=== PATIENT | male | born 1960 | race Caucasian/White ===

== ENCOUNTER 2018-05-10 14:44 | Inpatient (IN) | payer BC ==
[2018-05-10] MEDS ORDERED: NS 500 ML IV ONE (15:02)
--- NOTE | 2018-05-10 15:24 | EDPHY ---
H & P Time Seen by Provider: 05/10/18 15:02 HPI/ROS: HPI Chest pain, shortness of breath. 57-year-old male by private vehicle. This patient was just seen at a urgent care for a work related physical examination. He told the urgent care physician that he was having some intermittent chest pain over the last 2-3 weeks and was sent to the emergency department for evaluation. He describes to me intermittent episodes of left-sided anterior lower chest pain described as a dull ache that comes on for about 30 sec to a minute. He states that sometimes he has radiation up into the back of his neck. He reports that he also has had associated shortness of breath and notices that the pain episodes come on more when he is exerting himself such as going up stairs at work and accompanied by more shortness of breath than usual. Risk factors include diabetes, hyperlipidemia and age. He is a nonsmoker. The patient currently is asymptomatic. He denies any shortness of breath or chest pain at this time. ROS: Constitutional: No fever, no chills. No weakness. Eyes: No discharge. No changes in vision. ENT: No sore throat. No nasal congestion or rhinorrhea. Respiratory: No cough. As above. Cardiac: As above, no palpitations. Gastrointestinal: No abdominal pain, no vomiting, no diarrhea. Genitourinary: No hematuria. No dysuria or increased frequency with urination. Musculoskeletal: No back pain. No neck pain. No myalgias or arthralgias. Skin: No rashes. Neurological: No headache. No focal weakness or altered sensation. Past medical history: Hyperlipidemia, insulin-dependent diabetes, hernia repair , pneumonia, tonsillectomy. Social history: Nonsmoker. No alcohol. Currently here by himself. Physical Exam: General Appearance: Alert, no distress. This patient is responding to questions appropriately and in full sentences. This patient appears well- hydrated and well-nourished. Eyes: Pupils equal and round no pallor or injection. No lid edema, erythema or injection. Respiratory: There are no retractions, lungs are clear to auscultation with good air movement bilaterally. Cardiovascular: Regular rate and rhythm. No murmur. Gastrointestinal: Abdomen is soft and nontender, no masses, bowel sounds normal. No focal tenderness at McBurney's point. No Bee sign. Neurological: Motor sensory function is grossly intact. Cranial nerves are normal. Gait is normal. Skin: Warm and dry, no rashes. Musculoskeletal: Neck is supple and nontender. Extremities are symmetrical. All joints range without pain or impingement. Psychiatric: No agitation. No depression. Database: EKG: EKG time is 3:07 p.m.; EKG shows a narrow complex normal sinus rhythm with a ventricular rate of 81. Borderline left axis deviation noted. The MA, QRS, QT intervals are within normal limits. There are no ST-T wave changes indicative of ischemic or injury pattern. No evidence of right heart strain. Interpreted by me. Imaging: Chest x-ray AP portable; the cardiac mediastinal silhouette is unremarkable. No evidence of infiltrate or pneumothorax. No acute cardiopulmonary disease process noted. Interpreted by me. Procedures: Emergency department course: Triage vital signs reviewed. The patient is mildly hypertensive. Vital signs are otherwise normal. The patient was given 324 mg of chewed aspirin. IV placed. He was placed on a monitor car operator. EKG obtained and reviewed by myself. The patient's heart score is calculated at 4 based on age, history and risk factors. 4:00 p.m., patient re-evaluated, resting comfortably at this time. Results of his emergency department workup discussed with him. Plan for admission discussed with him. He endorses. 4:10 p.m., spoke with on-call hospitalist Dr. Carlos Feng. Case discussed in detail. He accepts this patient for admission to telemetry observation. The patient's remaining emergency department course under my care has been uneventful. The patient was admitted in stable condition. Differential Diagnosis: The differential diagnosis on this patient includes but is not limited to angina , anginal equivalent, NM, PE, CHF. This represents a partial list of diagnoses considered. These considerations are based on history, physical exam, past history, reassessment and diagnostic testing. Smoking Status: Never smoked Constitutional: Initial Vital Signs Temperature (C) 36.6 C 05/10/18 14:49 Heart Rate 87 05/10/18 14:49 Respiratory Rate 16 05/10/18 14:49 Blood Pressure 139/93 H 05/10/18 14:49 O2 Sat (%) 97 05/10/18 14:49 O2 Delivery Mode Room Air Allergies/Adverse Reactions: No Known Allergies Allergy (Unverified 05/10/18 14:48) Home Medications: Medication Instructions Recorded Aspirin 05/10/18 Crestor 05/10/18 Metformin 1000 mg 05/10/18 Prozac 10 MG (*) 05/10/18 Vitamin B12 05/10/18 Medical Decision Making - Diagnostics Imaging Results: Imaging Impressions Chest X-Ray 05/10/18 15:02 Impression: Normal. - Data Points Laboratory Results: Laboratory Results 05/10/18 15:35 05/10/18 15:35 05/10/18 05/10/18 05/10/18 15:38 15:35 15:35 WBC RBC Hgb Hct MCV MCH MCHC RDW Plt Count MPV Neut % (Auto) Lymph % (Auto) Harmon % (Auto) Eos % (Auto) Baso % (Auto) Nucleat RBC Rel Count Absolute Neuts (auto) Absolute Lymphs (auto) Absolute Monos (auto) Absolute Eos (auto) Absolute Basos (auto) Absolute Nucleated RBC Immature Gran % Immature Gran # Platelet Estimate PT 12.6 SEC SEC (12.0-15.0) INR 0.92 (0.83-1.16) APTT 26.1 SEC SEC (23.0-38.0) D-Dimer 0.33 ug/mLFEU ug/mLFEU (0.00-0.50) Sodium 137 mEq/L mEq/L (135-145) Potassium 4.2 mEq/L mEq/L (3.3-5.0) Chloride 104 mEq/L mEq/L (97-110) Carbon Dioxide 25 mEq/l mEq/l (22-31) Anion Gap 8 mEq/L mEq/L (8-16) BUN 21 mg/dL mg/dL (7-23) Creatinine 0.6 mg/dL L mg/dL (0.7-1.3) Estimated GFR > 60 Glucose 131 mg/dL H mg/dL (70-100) Calcium 9.3 mg/dL mg/dL (8.5-10.4) POC Troponin I 0.03 ng/mL ng/mL (0.00-0.08) NT-Pro-B Natriuret Pep 29 pg/mL pg/mL (0-125) 05/10/18 15:35 WBC 13.40 10^3/uL H 10^3/uL (3.80-9.50) RBC 4.75 10^6/uL 10^6/uL (4.40-6.38) Hgb 14.2 g/dL g/dL (13.7-17.5) Hct 40.7 % % (40.0-51.0) MCV 85.7 fL fL (81.5-99.8) MCH 29.9 pg pg (27.9-34.1) MCHC 34.9 g/dL g/dL (32.4-36.7) RDW 13.3 % % (11.5-15.2) Plt Count 278 10^3/uL 10^3/uL (150-400) MPV 8.9 fL fL (8.7-11.7) Neut % (Auto) Pending Lymph % (Auto) Pending Harmon % (Auto) Pending Eos % (Auto) Pending Baso % (Auto) Pending Nucleat RBC Rel Count Pending Absolute Neuts (auto) Pending Absolute Lymphs (auto) Pending Absolute Monos (auto) Pending Absolute Eos (auto) Pending Absolute Basos (auto) Pending Absolute Nucleated RBC Pending Immature Gran % Pending Immature Gran # Pending Platelet Estimate Pending PT INR APTT D-Dimer Sodium Potassium Chloride Carbon Dioxide Anion Gap BUN Creatinine Estimated GFR Glucose Calcium POC Troponin I NT-Pro-B Natriuret Pep Medications Given: Discontinued Medications Aspirin (Aspirin) 324 mg PO EDNOW ONE Stop: 05/10/18 15:27 Last Admin: 05/10/18 15:38 Dose: 324 mg Sodium Chloride (Ns) 500 mls @ 1,000 mls/hr IV EDNOW ONE PRN Reason: Protocol Stop: 05/10/18 15:31 Last Admin: 05/10/18 15:16 Dose: 500 mls Point of Care Test Results: Chemistry 05/10/18 15:38 POC Troponin I 0.03 ng/mL ng/mL (0.00-0.08) Departure - Departure Disposition: [facility] Inpatient Acute Clinical Impression: Chest pain Referrals: PARUL GHOSH [Other] - As per Instructions
[2018-05-10] MEDS ORDERED: ASPIRIN 81 MG CHEWABLE TAB PO ONE (15:26)
[2018-05-10 15:47] LABS: PLATELET COUNT 278 10^3/uL (150-400)
[2018-05-10 15:51] LABS: INR 0.92 (0.83-1.16); PROTIME(PATIENT) 12.6 SEC (12.0-15.0)
[2018-05-10] MEDS ORDERED: D50W 25 GM/50 ML VIAL IVP PRN (17:12)
--- NOTE | 2018-05-10 17:38 | GHP ---
DATE OF ADMISSION: 05/10/2018 CHIEF COMPLAINT: Chest pain. HISTORY OF PRESENT ILLNESS: This is a 57-year-old man with type 2 diabetes, who presents with chest pain. He had a routine screening physical exam today for a new job. The physician who performed the physical was worried and recommended that he present to the emergency department. He tells me that for about the past 2 weeks, he has had a left-sided dull aching chest pain that is reproducible with exertion. He has been fairly active, walks daily. Now, when he begins to walk, he gets this chest pain. It is relieved when he rests. He also goes to the gym and lifts weights. He does not note the chest pain while lifting weights; however, has noted some worsening lightheadedness associated with lifting weights. He is not currently having any chest pain. He has no palpitations, no new swelling. His chest pain is associated with some shortness of breath. PAST MEDICAL/SURGICAL HISTORY: 1. Diabetes mellitus type 2. Last A1c 5.7. 2. Hernia repair. 3. Tonsillectomy. MEDICATIONS: Please see medication reconciliation. ALLERGIES: No known drug allergies. FAMILY HISTORY: His mother had a CABG. SOCIAL HISTORY: He does not drink or smoke. 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 REVIEW OF SYSTEMS: A 10-point review of systems is conducted and is negative except per HPI. PHYSICAL EXAM: VITAL SIGNS: Blood pressure 146/92, heart rate 78, respiration rate 18, satting 97% on room air, temperature is 36.6. GENERAL: This is a pleasant man who is resting comfortably in no acute distress. HEENT: Shows him to be normocephalic, atraumatic. CARDIOVASCULAR: Shows a regular rate and rhythm. There are no murmurs, rubs, or gallops. PULMONARY: Shows distant breath sounds; however, he is in no respiratory distress, and he is clear bilaterally. ABDOMEN: Mildly obese. He is soft, nontender, nondistended. SKIN: Shows no rash. : No [place]. EXTREMITIES: Shows no lower extremity edema. NEUROLOGIC: Shows him to be alert and oriented x3. He is moving all extremities. PSYCHIATRIC: Shows a normal mood and affect. LABORATORY DATA: Basic metabolic panel is normal. Creatinine is 0.6, initial troponin is 0.03, BNP is 29. His D-dimer is 0.33, INR is 0.92. White count is 13.4 with a relatively unremarkable distribution. DATA: 1. I discussed this with Casey Mckay. Cardiology will consult. 2. I personally reviewed and interpreted his EKG. This shows sinus rhythm. He has borderline left axis deviation. 3. Chest x-ray, which I personally viewed and interpreted, shows a normal- sized heart, no acute infiltrates. IMPRESSION AND PLAN: 1. Chest pain/shortness of breath: History is concerning for new angina in a man with diabetes. I have discussed with Casey Mckay, Cardiology will consult. We will make him n.p.o. after midnight in case a catheterization is warranted. I have ordered an echocardiogram for his shortness of breath. We will trend his troponins and monitor him on telemetry in the PCU. He has received an aspirin. His HEART Score is 4. 2. Diabetes mellitus: Will hold metformin for now, continue his glargine and place him on low-dose sliding scale and follow his blood glucoses. /[id number]/MODL MTDD
[2018-05-10] MEDS: INSULIN LISPRO 100 UNIT/ML SC SCH (18:13)
[2018-05-10] MEDS ORDERED: HYDROCODONE/APAP 5/325 TAB PO PRN (19:44)
[2018-05-10] MEDS: OXYMETAZOLINE 30 ML NASAL SPRAY EACHNARE SCH (20:57)
[2018-05-10] MEDS ORDERED: INSULIN GLARGINE 100 UNITS/ML UNIT SC SCH (21:00)
--- NOTE | 2018-05-10 23:05 | CPEKG ---
Test Reason : OPEN Blood Pressure : / mmHG Vent. Rate : 081 BPM Atrial Rate : 081 BPM P-R Int : 143 ms QRS Dur : 094 ms QT Int : 383 ms P-R-T Axes : 058 -22 056 degrees QTc Int : 445 ms Sinus rhythm Borderline left axis deviation Confirmed by Félix Martino ([id number]) on 05/10/2018 11:05:02 PM Referred By: Confirmed By:Félix Martino
[2018-05-11 04:17] LABS: PLATELET COUNT 267 10^3/uL (150-400)
[2018-05-11] MEDS: OXYMETAZOLINE 30 ML NASAL SPRAY EACHNARE SCH (08:00)
[2018-05-11] MEDS ORDERED: MIDAZOLAM 2 MG/2 ML VIAL ONE ×4 (08:21→13:47)
[2018-05-11] MEDS ORDERED: LIDOCAINE 1% 300 MG/30 ML SDV ONE (08:21)
[2018-05-11] MEDS ORDERED: fentaNYL 100 MCG/2 ML INJ ONE ×3 (08:21→17:32)
[2018-05-11] MEDS ORDERED: IOPAMIDOL (ISOVUE-370) 150 ML BTL IV ONE (08:22)
[2018-05-11] MEDS ORDERED: DIAZEPAM 5 MG TAB PO ONE (08:50)
[2018-05-11] MEDS ORDERED: ACETAMINOPHEN 325 MG TAB PO PRN ×2 (08:50→17:37)
[2018-05-11] MEDS ORDERED: diphenhydrAMINE 25 MG CAP PO ONE ×2 (08:50→11:09)
[2018-05-11] MEDS ORDERED: TEMAZEPAM 15 MG CAP PO PRN (08:50)
[2018-05-11] MEDS ORDERED: FAMOTIDINE 20 MG TAB PO ONE (08:50)
[2018-05-11] MEDS ORDERED: NITROGLYCERIN 0.4 MG BTL SL PRN (08:50)
[2018-05-11] MEDS ORDERED: ASPIRIN EC 325 MG TAB PO ONE ×2 (08:50→11:09)
[2018-05-11] MEDS ORDERED: ASPIRIN 325 MG TAB PO SCH (09:00)
[2018-05-11] MEDS ORDERED: NS 1,000 ML IV SCH ×2 (09:00→17:45)
[2018-05-11] MEDS: ROSUVASTATIN CALCIUM 10 MG TAB PO SCH (09:05)
[2018-05-11] MEDS: ASPIRIN EC 81 MG TAB PO SCH (09:05)
[2018-05-11] MEDS: INSULIN LISPRO 100 UNIT/ML SC SCH ×2 (09:14→13:16)
--- NOTE | 2018-05-11 10:21 | GCON ---
CARDIOLOGY CONSULTATION REFERRING PHYSICIAN: Carlos Feng MD SUPERVISING MUSIC THERAPY TEACHER: Dr. Baudilio Bowman. INDICATION FOR CARDIOLOGY CONSULTATION: Exertional chest pressure. HISTORY OF PRESENT ILLNESS: The patient is a 57-year-old male with significant past history that inc ludes adult-onset diabetes, previous smoker (quit in the late 20s), and hyperlipidemia. He informs ld mary kate, yesterday he was seen at an urgent care for a physical for a new job at his work. He did tell the physician that was providing the examination that over the last few weeks, he has been noticing epis odes of shortness of breath, occasionally associated with midsternal chest pressure with exertion. Anh hartmann reports that he has been noticing this on a daily basis, usually after climbing 1 or 2 flights of s tairs at work, especially on hot days. He has also noticed this at home when he has been mowing his yard. He denies of any associated symptoms of nausea or diaphoresis. Usually after he gets the shor tness of breath and pressure, he stops for between 2 and 5 minutes, and the symptoms resolved. He do es state that he was planning to see his primary care about this, but his work physical came up first . Due to his symptoms, it was recommended that he come to the emergency department for further evalu ation. Upon arrival to the ER, he did undergo chest x-ray, which showed no acute cardiopulmonary pro cess. An electrocardiogram was done, which noted sinus rhythm, left axis deviation, potentially poor R-wave progression in anterior leads, but no acute ST or T-wave abnormalities. He did have a tropon in level done initially, which was noted to be at 0.03. He was asymptomatic. He was admitted to PCU for overnight observation and cycle troponins. Through the night, it was noted that his troponin at 11 o'clock did elevate a little bit at 0.061, and a repeated troponin level done this morning at 4 a .m. showed mildly increasing troponin of 0.064. He reports that he has had no further episodes of ch est pressure or pain since arriving to the hospital. He denies of any history of orthopnea, PND, tameka ma, palpitations, lightheadedness, near-syncope, or syncopal events. Besides having chest pressure a nd pain, he has been in his normal state of health. Denying symptoms suggestive of TIA or CVA. Jesica ent with significant cardiac risk factors that include diabetes, previous smoker, hyperlipidemia, and family history of heart disease, reporting Mother had an NJ at age 67, requiring quadruple bypass. PAST MEDICAL HISTORY: Patient states past medical histories include diabetes mellitus type 2. Lowell nt reports last hemoglobin A1c was 5.7. Hyperlipidemia, peripheral neuropathy, and osteoarthritis. PAST SURGICAL HISTORY: Includes hernia repair in the 1980s and a T and A in 1964. FAMILY HISTORY: Patient states that mother had NJ in 2000 at age 67. She did undergo quadruple bypa ss surgery but, unfortunately, did have an infection postoperatively and of sepsis. SOCIAL HISTORY: He works here in [employer]. He is . He has 1 child who is 10 years old who is alive and well. He reports occasional alcohol use. Reports previous smoker, quitting at age 26. D enies of any illicit drug use. ALLERGIES: He has no known drug allergies. MEDICATIONS: At home include aspirin 81 mg p.o. daily. Afrin nasal spray 1 spray each nares b.i.d. Ibuprofen 800 mg p.o. t.i.d. p.r.n. [place] 5/325 at 0.5 mg p.o. t.i.d. p.r.n. Lantus 30 units subcu h.s. Crestor 10 mg p.o. daily. Vitamin B 1 tablet p.o. daily. Metformin 1000 mg p.o. b.i.d. REVIEW OF SYSTEMS: A 10-point review of systems done on this patient, all negative except as mention ed above. PHYSICAL EXAMINATION: GENERAL APPEARANCE: Medium built, mildly obese, male. He is alert and orientated to person, place, time, and situation. Appears to be under no acute distress. VITAL SIGNS: Current vital signs are blood pressure of 149/99, heart rate of 86, sinus rhythm on the monito r. Noted no malignant arrhythmias on monitoring throughout the night. Respirations are 15, saturati ng 91% on room air. Temperature at 4 a.m. was 36.8 degrees Celsius. HEENT: Head is normocephalic. Lips and tongue are pink and moist with no signs of cyanosis. Conjunctivae pink. NECK: Trachea is midline, +2 carotid pulses bilateral. No auscultated bruits, no jugular vein distention. RESPIRATO RY: Lungs are clear to auscultation. No rhonchi, rales or wheezes. No accessory muscle use. No in tercostal muscle retraction noted. ABDOMEN: Soft, nontender. Bowel sounds x4 quadrants. No organo megaly, no palpable masses. SKIN: [place], warm, dry. No cyanosis, no clubbing, no peripheral edema. VASCULAR: +2 carotids bilateral, +2 radials bilateral, +1 dorsal pedal and posterior tibial pulses bilateral. LABORATORY STUDIES: Laboratory studies drawn today noted WBC of 12.87, hemoglobin of 13.9, hematocri t of 40.3, platelet count of 267. Triglycerides of fasting lipid panel 272, total cholesterol of 158 , HDL of 10, LDL of 94. On admission, last evening, he was noted to have an INR of 0.92. D-dimer of 0.33. Sodium of 137, potassium 4.2, chloride 104, CO2 of 25. BUN 21, creatinine 0.6, glucose 131, calcium 9.3, proBNP of 29. Initial troponin was 0.03, repeated troponin at 2300 last evening was burton vated to 0.061 and this morning at 4 a.m. was 0.064. STUDIES: Electrocardiogram and chest x-ray as mentioned above. ASSESSMENT AND PLAN: 1. Chest pressure with shortness of breath with exertion. Patient with significant cardiac risk fac tors, reporting over the last 2 weeks of ongoing exertional chest pressure with shortness of breath, potentially mostly on a daily basis. Does subside within 3-5 minutes of rest ([place] Cardiovascul[employer] r Society class 3). The patient with noted mildly elevated troponin. At this time, due to his multi ple risk factors, his symptoms of exertion, and indeterminate troponin levels, it is felt best that t he patient be further evaluated for cardiac ischemia by undergoing cardiac catheterization for furthe r evaluation. Risks and benefits of this procedure were explained to the patient. He verbalizes und erstanding and is wanting to proceed. He has been n.p.o. since midnight. We will plan for him to go later this morning with Dr. Bowman to perform procedure. Currently he is chest pain free. We will ho ld off on starting him on beta-blockers at this time, due to him going for procedure soon. We will g dex him a full dose of aspirin before going to the catheterization laboratory. We will start him on IV fluid for some mild hydration, since he has been n.p.o. and history of diabetes. 2. Hyperlipidemia: Patient with noted history of hyperlipidemia, currently on statin therapy. Pend ing on results of his cardiac catheterization, would recommend that Crestor be increased with goal of getting LDL of less than 70. 3. Diabetes: His home dose of metformin has been held by the hospitalist services. He has been con tinued on his Lantus. His blood sugars have been running . Post catheterization, we will want him to hold his metformin for 48 hours after procedure. We will defer diabetic management to spitalist services. Thank you for this consultation. More recommendations will come up postprocedure. We will be glad t o follow along with you. /[id number]/MODL
--- NOTE | 2018-05-11 10:41 | PDCARPN ---
Cardiology Progress Note Chief Complaint: Exertional chest pressure, NORTH. Assessment/Plan: Assessment: 1. Exertional Chest pressure 2. NORTH 3. Hyperlipidemia 4. DM II Plan: -[facility] this AM -Risks and benefits discussed in detail 05/11/18 10:40 Subjective: Jay is a pleasant 57 year old with hx of DM and Hyperlipidemia who presents with a 2 week history of exertional chest pressure and NORTH with climbing stairs. No known history of CAD. LDL of 94 on Crestor 10 mg daily. Plan for [facility] today. Risks and Benefits discussed in detail. Pt is agreeable to pursue. Objective: Vital Signs (8 Hrs) Temp Pulse Resp BP Pulse Ox 05/11/18 08:00 86 15 149/99 H 91 L 05/11/18 04:00 36.8 C 71 16 137/82 H 96 Intake/Output (24 Hrs) 05/10/18 05/11/18 05/12/18 05:59 05:59 05:59 Intake Total 700 Balance 700 Intake: Oral (ml) 700 Other: Weight 91.172 kg Number of Voids Toilet 1 Result Diagrams: 05/11/18 03:53 05/10/18 15:35 Cardiac Labs: Cardiac Lab Results (72 Hrs) 05/11/18 05/10/18 03:53 23:21 Troponin I 0.064 H 0.061 H - Physical Exam Neurologic: AAOx3, CN II-XII grossly intact Psychiatric: cooperative, interactive, following commands ICD10 Worksheet Patient Problems: Problems Problem Status Onset Chest pain Acute
[2018-05-11] MEDS ORDERED: FAMOTIDINE 20 MG TAB ONE (11:08)
[2018-05-11] MEDS ORDERED: DIAZEPAM 5 MG TAB ONE (11:09)
--- NOTE | 2018-05-11 11:25 | PDPROPOC ---
Sedation Plan of Care Sedation Plan of Care: vital signs stable, mental status noted, patient educated of risks, benefits, alternatives, patient can tolerate sedation ASA Classification: ASA 2 Planned drugs: fentanyl, midazolam Mallampati Score: Class 2 Mallampati Reference Image: Patient passed 3-3-2 rule?: Yes
[2018-05-11] MEDS ORDERED: ONDANSETRON 4 MG/2 ML VIAL IVP PRN ×2 (12:26→17:37)
[2018-05-11] MEDS ORDERED: ATROPINE SULFATE 1 MG/10 ML SYR IVP PRN (12:26)
[2018-05-11] MEDS ORDERED: PROTAMINE SULFATE 50 MG/5 ML VIAL IVP ONE (12:43)
[2018-05-11] MEDS ORDERED: niCARdipine/NACL/200 ML BAG IV ONE (12:44)
[2018-05-11] MEDS ORDERED: CALCIUM CHLORIDE 1 GM/10 ML INJ ONE ×3 (12:44→12:45)
[2018-05-11] MEDS ORDERED: MILRINONE/DEXTROSE/100 ML BAG IV ONE (12:44)
[2018-05-11] MEDS ORDERED: AMIODARONE HCL 150 MG/3 ML VIAL ONE ×2 (12:44→12:46)
[2018-05-11] MEDS ORDERED: NA BICARBONATE 50 MEQ/50 ML VIAL ONE (12:44)
[2018-05-11] MEDS ORDERED: DOPamine/DEXTROSE 400 MG/250 ML BAG IV ONE (12:44)
[2018-05-11] MEDS ORDERED: HEPARIN 10,000 UNIT/10 ML MDV (1,000 UNIT/ML) ONE ×2 (12:44→12:45)
[2018-05-11] MEDS ORDERED: ADENOSINE 6 MG/2 ML VIAL ONE (12:45)
[2018-05-11] MEDS ORDERED: ALBUMIN 5% 250 ML BOTTLE IV ONE ×2 (12:45→16:03)
[2018-05-11] MEDS ORDERED: NITROGLYCERIN/D5W 50 MG/250 ML BOTTLE IV ONE (12:45)
[2018-05-11] MEDS ORDERED: ceFAZolin 1 GM VIAL ONE (12:45)
[2018-05-11] MEDS ORDERED: LIDOCAINE 2% 100 MG/5 ML SYR ONE ×2 (12:45→13:51)
[2018-05-11] MEDS ORDERED: CITRATE DEXTROSE SOLN 500 ML BAG ONE (12:45)
[2018-05-11] MEDS ORDERED: methylPREDNISolone SOD SUCC 1 GM/8 ML VIAL ONE (12:46)
[2018-05-11] MEDS ORDERED: NOREPINEPHRINE BITARTRATE 16 MG in NS 250 ML IV ONE (12:46)
[2018-05-11] MEDS ORDERED: ceFAZolin 2 GM/DEXTROSE 100 ML IV ONE (12:46)
[2018-05-11] MEDS ORDERED: CITRATE DEXTROSE SOLN 500 ML BAG MISC ONE (12:46)
[2018-05-11] MEDS ORDERED: MANNITOL 25% 12.5 GM/50 ML VIAL IVP ONE (12:46)
[2018-05-11] MEDS ORDERED: AMINOCAPROIC ACID 5 GM/20 ML VIAL IV ONE (12:46)
[2018-05-11] MEDS ORDERED: SODIUM BICARBONATE 20 MEQ, LIDOCAINE 1% 10 ML in NORMOSOL-R 1,000 ML MISC ONE (12:46)
[2018-05-11] MEDS ORDERED: MAGNESIUM SULFATE 1 GM/2 ML VIAL ONE (12:46)
[2018-05-11] MEDS ORDERED: MUPIROCIN 2% 22 GM OINT NS ONE (12:46)
[2018-05-11] MEDS ORDERED: INSULIN REGULAR HUMAN 100 UNIT in NS 100 ML IV ONE (12:46)
[2018-05-11] MEDS ORDERED: PHENYLEPHRINE HCL 50 MG in NS 250 ML IV ONE (12:46)
[2018-05-11] MEDS ORDERED: VERAPAMIL 5 MG, NITROGLYCERIN 2.5 MG, HEPARIN 500 UNIT, SODIUM BICARBONATE 0.2 MEQ in L... MISC ONE (12:46)
[2018-05-11] MEDS ORDERED: niCARdipine/NACL 200 ML IV ONE (12:48)
[2018-05-11] MEDS ORDERED: VERAPAMIL 5 MG/2 ML VIAL ONE (12:49)
[2018-05-11] MEDS ORDERED: MINERAL OIL 10 ML VIAL ONE (12:49)
[2018-05-11] MEDS ORDERED: PAPAVERINE HCL 60 MG/2 ML SDV ONE (12:49)
--- NOTE | 2018-05-11 13:12 | CPIP ---
DATE OF PROCEDURE: 05/11/2018 PROCEDURES PERFORMED: Left heart catheterization, left coronary angiography, right coronary angiogra phy, left ventriculogram, and common femoral artery angiography. INDICATION: The patient is a pleasant 57-year-old gentleman with a known history of type 2 diabetes and hyperlipidemia, who presented to [facility] with complaints of chest pain. He st ates that over the last several weeks with a change in job, he has been having to climb stairs and gutierrez bsequently has noted shortness of breath and dyspnea on exertion, as well as exertional chest pain. He states that the symptoms have progressed to the point where he was getting chest pain with walking on flat surfaces and resolved with rest. He has no previous history of coronary disease. DESCRIPTION OF PROCEDURE: After informed consent was obtained for left heart catheterization, as wel l as possible percutaneous intervention, the patient was brought to the cardiac catheterization lab w here he was prepped and draped in sterile fashion. Using 1% lidocaine, the right groin was anestheti zed. Using modified Seldinger technique with micropuncture technique, a 6-Rwandan catheter was placed into the right common femoral artery without complications. A JL-4 was originally used to attempt t o cannulate the left main unsuccessfully. This was exchanged over a guidewire for a JL 3.5 wire. A JL 3.5 catheter was able to cannulate the left main. Images were obtained in multiple projections of the left coronary anatomy. A JL 3.5 catheter was exchanged over a guidewire for a JR4 catheter. JR 4 catheter was used to take images of the right coronary artery in multiple projections. JR4 cathete r was exchanged over a guidewire for an angled pigtail catheter. Angled pigtail catheter was used to cross the aortic valve. Left ventriculogram was performed. LVEDP was assessed. Aortic valve gradi ent was assessed. Angled pigtail catheter was removed over a guidewire without complications. Right common femoral artery angiography demonstrated appropriate placement of the 6-Rwandan sheath below th e inguinal ligament and just proximal to the bifurcation. This was amenable to Angio-Seal. FINDINGS: 1. Left main is normal size and caliber. There is a 20-30 percent ostial left main stenosis. 2. Left anterior descending artery demonstrates 2 areas of disease in the proximal mid segment. Pro ximal stenosis of 70%, mid stenosis of 70-80% at the level of the large diagonal branch. 3. Circumflex vessel demonstrates mild luminal irregularities throughout the vessel. There is 40-50 % ostial stenosis of the large 1st obtuse marginal branch. 4. The right coronary artery is a large caliber dominant vessel that bifurcates into PDA and PLV bra nch. There are multiple segments of disease in the proximal vessel of approximately 95% or more. HEMODYNAMICS: Left ventriculogram demonstrates LVEF of 65%-70%. LVEDP of 12 mmHg. Aortic valve gra dient none. CONCLUSION: 1. Severe 2-vessel disease with severe disease within the left anterior descending and right coronar y artery. 2. 30% ostial left main. 3. Mild luminal irregularities in the circumflex with 40-50% ostial stenosis of the first obtuse mar ginal branch. 4. Normal left ventricular function and hemodynamics. In the setting of diabetes and hyperlipidemia with 2-vessel disease, I have recommended a CT surgery consultation and coronary artery bypass graft surgery. In the setting of progressive symptoms, now o ccurring with walking on flat surface with mildly elevated troponin, I have recommended urgent surger y to be performed later today. /[id number]/MODL
--- NOTE | 2018-05-11 13:27 | PDANEPAE ---
ANE History of Present Illness severe 2v CAD s/f urgent CABG ANE Past Medical History - Pulmonary History Hx Oxygen in Use at Home: No Hx Sleep Apnea: Yes - Endocrine History Hx Diabetes: Yes Endocrine History Comment: adult onset ANE Review of Systems Review of Systems: - Exercise capacity Exercise capacity: >=4 METS ANE Patient History - Allergies Allergies/Adverse Reactions: No Known Allergies Allergy (Unverified 05/10/18 14:48) - Home Medications Home medications: home medication list seen and reviewed Home Medications: Aspirin EC [Aspirin EC 81 mg (*)] 81 mg PO DAILY 05/10/18 [Last Taken 05/10/18] Hydrocodone/APAP 5/325 [[place] 5/325 (*)] 0.5 each PO TID PRN 05/10/18 [Last Taken 05/10/18] Ibuprofen [Motrin (*)] 800 mg PO TID PRN 05/10/18 [Last Taken 05/10/18] Insulin Glargine [Lantus 100 UNITS/ML (*)] 30 unit SC HS 05/10/18 [Last Taken ] Metformin HCl [Metformin 1000 mg] 1,000 mg PO BIDMEAL 05/10/18 [Last Taken 05/10 07:00] Oxymetazoline HCl [Afrin Nasal [place] (OTC)] 1 spray EACHNARE BID 05/10/18 [Last Taken 05/10/18] Rosuvastatin Calcium [Crestor 10mg (RX)] 10 mg PO DAILY 05/10/18 [Last Taken ] Vitamin B Complex [Vitamin B Complex (OTC)] 1 each PO DAILY 05/10/18 [Last Taken 05/10/18] - NPO status NPO Status: no food or drink >8 hours - Anes Hx Anes Hx: no prior problems - Smoking Hx Smoking Status: Never smoked Marijuana use: No - Alcohol Use Alcohol Use: Rarely - Family Anes Hx Family Anes Hx: none ANE Labs/Vital Signs - Labs Result Diagrams: 05/11/18 03:53 05/10/18 15:35 - Vital Signs Blood Pressure: 149/99 Heart Rate: 86 Respiratory Rate: 15 O2 Sat (%): 91 Height: 172.72 cm Weight: 92.2 kg ANE Physical Exam - Airway Neck exam: FROM Mallampati Score: Class 2 Mouth exam: normal dental/mouth exam - Pulmonary Pulmonary: no respiratory distress - Cardiovascular Cardiovascular: regular rate and rhythym - ASA Status ASA Status: III, E ANE Anesthesia Plan Anesthesia Plan: general endotracheal anesthesia Lines/Monitors: arterial line, central line
--- NOTE | 2018-05-11 13:27 | GCON ---
DATE OF CONSULTATION: 05/10/2018 IMPRESSION: 1. Zxu-[id number]-[id number] myocardial infarction with severe 3-vessel and left main disease with preserved left ventricular function. 2. Insulin-dependent diabetes mellitus. 3. Mild obesity. 4. Status post hernia repair, tonsillectomy, and sinus surgery. RECOMMENDATIONS: This patient has a stuttering infarct with high-grade proximal right and LAD diseas e, as well as ostial left main. He should undergo urgent coronary artery revascularization. We will utilize 2 internal thoracic arteries, as well as a single vein graft endoscopically harvested. His overall risk is 0.5% for stroke, bleeding, infection, heart attack, or . Patient is aware. His was advised as well. She signed the consent since the patient had sedation. He had been advis ed that he may be a surgical candidate preoperatively, and was agreeable with that. MEDICAL HISTORY: As stated. SURGERIES: As stated. REVIEW OF SYSTEMS: At present time, he is lying supine, moderately sedated. Please see admitting hi story and physical for review of systems. 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 , accompanied by his . He does not smoke. He dri nks an occasional alcoholic beverage. PHYSICAL EXAMINATION: GENERAL: This is a moderately overweight, middle-aged gentleman lying supine, in no apparent distress. VITAL SIGNS: Blood pressure is 149/99, pulse 86, respirations 15, O2 satu ration 91% on room air. HEENT: Normocephalic. RAQUEL. EOMI. NECK: Without bruit, adenopathy, or thyromegaly. HEART: Rate is regular without murmur, S3 or S4. LUNGS: Clear. ABDOMEN: Protuberan t, nontender. Bowel sounds are active. Femorals were cannulated. There were pulses symmetrically, as well as pedal pulses without edema. /[id number]/MODL
[2018-05-11] MEDS ORDERED: fentaNYL 250 MCG/5 ML INJ ONE (13:47)
[2018-05-11] MEDS ORDERED: PROPOFOL/EMULSION 500 MG/50 ML BOTTLE IV ONE ×2 (13:47→15:09)
[2018-05-11] MEDS ORDERED: REMIFENTANIL HCL 1 MG VIAL ONE ×2 (13:47→15:09)
[2018-05-11] MEDS ORDERED: PHENYLEPHRINE HCL 100 MCG/ML SYR ONE ×2 (13:48→15:13)
[2018-05-11] MEDS ORDERED: ROCURONIUM 100 MG/10 ML VIAL ONE (13:48)
[2018-05-11] MEDS ORDERED: ePHEDrine SULFATE 25 MG/5 ML SYR ONE (13:48)
[2018-05-11] MEDS ORDERED: LIDOCAINE HCL 160 MG/4 ML LTA KIT TP ONE (13:54)
--- NOTE | 2018-05-11 14:22 | HOSPPROG ---
Hospitalist Progress Note Assessment/Plan: Patient taken to cath and found to have multivessel disease and taken to OR for revascularization. Medicine will sign off as patient now will be cared for by CT surgery, please reconsult if need arises. Objective: Vital Signs Temp Pulse Resp BP Pulse Ox 36.8 C 86 15 149/99 H 91 L 05/11/18 04:00 05/11/18 13:27 05/11/18 13:27 05/11/18 13:27 05/11/18 13:27 Laboratory Results 05/11/18 03:53 05/10/18 05/11/18 05/12/18 05:59 05:59 05:59 Intake Total 700 Balance 700 PT 12.6 SEC (12.0-15.0) 05/10/18 15:35 INR 0.92 (0.83-1.16) 05/10/18 15:35 ICD10 Worksheet Patient Problems: Problems Problem Status Onset Chest pain Acute
[2018-05-11] MEDS ORDERED: LABETALOL HCL 5 MG/ML 20 ML MDV ONE (14:33)
--- NOTE | 2018-05-11 14:49 | ASMTCASEMG ---
Living Arrangements What is your living Answers: With Spouse arrangement? Who do you live with? Type Of Residence What kind of residence do Answers: House you live in? Discharge Plan Comments Coordination Status Comments Notes: Pt is a 57 y/o man admitted for chest pain, dyspnea with exertion. 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 Needs are TBD at this time. CM to follow. Plan: TBD Date Signed: 05/11/2018 02:49 PM Electronically Signed By:VINAY Barth
--- NOTE | 2018-05-11 14:55 | ECHO ---
[email or web address] [address] [address] Main: [phone] Fax: Transthoracic Echocardiogram Name: ARNAV DAVIS MR#: [id number] Study Date: 05/11/2018 Study Time: 09:36 AM Date of : 1960 Age: 57 year(s) Height: 172.7 cm (68 in.) Weight: 91.17 kg (201 lb.) BSA: 2.05 m2 Gender: Male Examination: Echo Indication: sobnb Image Quality: Technically Difficult Contrast: Requested by: Carlos Feng BP: 149 mmHg/99 mmHg Heart Rate: Rhythm: Indication: sobnb Procedure Staff Green Material Value Added Assessor: Maty Lares TENZIN Reading Physician: Vinay Gordillo MD Requesting Provider: Conclusions: Normal size left ventricle. No LV hypertrophy. Normal global systolic LV function. The ejection fraction is estimated to be 55-60 %. No regional wall motion abnormality. Normal diastolic LV function. Normal size right ventricle. Normal RV function. The left atrium is normal in size. The right atrium is normal in size. The mitral valve is normal in appearance and function. Mild mitral valve regurgitation is present. The aortic valve is tri-leaflet. Aortic sclerosis is present. There is no significant aortic valve regurgitation. No aortic valve stenosis is present. The tricuspid valve is normal in appearance and function. Trivial to mild tricuspid valve regurgitation. The pulmonic valve is normal in appearance and function. There is no pulmonic regurgitation seen. The aorta is normal. Normal size aortic root measuring 2.8 cm. Normal size ascending aorta measuring 2.5 cm. The IVC is normal sized. No pericardial effusion. No pleural effusion. The patient is slated for urgent bypass surgery. No evidence of significant or concomittant valvular heart disease. Valvular abnormalities as noted above. Patient: ARNAV DAVIS Study Date: 05/11/2018 Page 1 of 3 09:36 AM Measurements: Chambers Valvular Assessment AV/MV Valvular Assessment TV/PV Normal Normal Normal Name Value Range Name Value Range Name Value Range Ao Jessica (2D): 2.8 cm (1.4 cm-2.6 AV Vmax: 1.58 m/s (1 m/s-1.7 PV Vmax: 0.92 m/s (0.6 m/s-0.9 cm) m/s) m/s) IVSd (2D): 1.0 cm (0.6 cm-1.1 AV maxP mmHg ( - ) PV PGmax: 3 mmHg ( - ) cm) AV meanP mmHg ( - ) LVDd (2D): 4.3 cm (4.2 cm-5.9 TUYET (VTI): 2.0 cm ( - ) cm) MV E Vmax: 0.70 m/s ( - ) LVDs (2D): 2.8 cm (2.1 cm-4 MV A Vmax: 0.62 m/s ( - ) cm) MV E/A: 1.13 ( - ) LVPWd (2D): 1.0 cm (0.6 cm-1 cm) MV PHT: 0.058 s ( - ) LVOTd 1.9 cm 1.9 cm mm MVA (PHT): 3.8 s ( - ) LVEF (BP): 61 % (>=55 %) EF Range: 55-60 % RVDd(2D): 3.0 cm (1.9 cm-3.8 cmmm) Continued Measurements: Chambers Valvular Assessment AV/MV Name Value Name Value LADs: 3.3 cm MV DecTime: 225 m/s LADs Lon.7 cm MV E' Septal: 0.06 m/s LA Area: 13.4 cm2 MV E/E' Septal: 11.00 LA Volume: 27 ml MV E/E' Lateral: 5.80 LA Volume Index: 13.2 ml/m2 RA Area: 11.0 cm2 Additional Vessels Name Value Ao Ascendin.5 cm Inferior Vena Cava: 1.0 cm Findings: Left Ventricle: Normal size left ventricle. No LV hypertrophy. Normal global systolic LV function. The ejection fraction is estimated to be 55-60 %. No regional wall motion abnormality. Normal diastolic LV function. Right Ventricle: Normal size right ventricle. Normal RV function. Left Atrium: The left atrium is normal in size. Right Atrium: The right atrium is normal in size. Mitral Valve: The mitral valve is normal in appearance and function. Mild mitral valve regurgitation is present. No mitral stenosis is present. Aortic Valve: The aortic valve is tri-leaflet. Aortic sclerosis is present. There is no significant aortic valve regurgitation. No aortic valve stenosis is present. Tricuspid Valve: The tricuspid valve is normal in appearance and function. Trivial to mild tricuspid valve regurgitation. Pulmonic Valve: The pulmonic valve is normal in appearance and function. There is no pulmonic regurgitation seen. Aorta: The aorta is normal. Normal size aortic root measuring 2.8 cm. Normal size ascending aorta measuring 2.5 cm. Patient: ARNAV DAVIS Study Date: 05/11/2018 Page 2 of 3 09:36 AM IVC: The IVC is normal sized. Pericardium: No pericardial effusion. No pleural effusion. (No Signature Object) Patient: ARNAV DAVIS Study Date: 05/11/2018 Page 3 of 3 09:36 AM [id number]
[2018-05-11] MEDS ORDERED: SUGAMMADEX SODIUM 200 MG/2 ML VIAL IVP ONE (17:23)
[2018-05-11] MEDS ORDERED: ONDANSETRON 4 MG/2 ML VIAL ONE (17:24)
[2018-05-11] MEDS ORDERED: DEXAMETHASONE 4 MG/ML VIAL ONE (17:25)
[2018-05-11] MEDS ORDERED: ACETAMINOPHEN 650 MG SUPP PR PRN (17:37)
[2018-05-11] MEDS ORDERED: METOCLOPRAMIDE 10 MG/2 ML VIAL IVP PRN (17:37)
[2018-05-11] MEDS ORDERED: ONDANSETRON DISINTEGRATING 4 MG TAB PO PRN (17:37)
[2018-05-11] MEDS ORDERED: MAGNESIUM HYDROXIDE 30 ML UDCUP PO PRN (17:37)
[2018-05-11] MEDS ORDERED: CEPACOL LOZENGE PO PRN (17:37)
[2018-05-11] MEDS ORDERED: POTASSIUM Cl (KCl) 50 ML IV PRN (17:37)
[2018-05-11] MEDS ORDERED: LACTULOSE 20 GM/30 ML UDCUP PO PRN (17:37)
[2018-05-11] MEDS ORDERED: BISACODYL 10 MG SUPP PR PRN (17:37)
[2018-05-11] MEDS ORDERED: MEPERIDINE 25 MG/0.5 ML AMP IVP PRN (17:37)
[2018-05-11] MEDS ORDERED: ALBUMIN 5% 250 ML IV PRN (17:37)
[2018-05-11] MEDS ORDERED: POLYETHYLENE GLYCOL 3350 17 GM PKT PO PRN (17:37)
[2018-05-11] MEDS ORDERED: PANTOPRAZOLE SODIUM 40 MG VIAL IVP ONE (17:37)
[2018-05-11] MEDS ORDERED: SODIUM CL NASAL 45 ML BTL EACHNARE PRN (17:37)
[2018-05-11] MEDS ORDERED: PROPOFOL 200 MG/20 ML VIAL ONE (17:49)
[2018-05-11] MEDS ORDERED: INSULIN REGULAR HUMAN 100 UNIT in NS 100 ML IV SCH (18:00)
[2018-05-11] MEDS ORDERED: niCARdipine/NACL 200 ML IV SCH (18:00)
--- NOTE | 2018-05-11 18:03 | PDMN ---
Medical Necessity Medical necessity: MCG: S390 CABG 4 days [facility] INPT only- emergent CABG X4
[2018-05-11] MEDS: fentaNYL 100 MCG/2 ML INJ IVP PRN (19:23)
[2018-05-11] MEDS ORDERED: DEXMEDETOMIDINE HCL 400 MCG in NS 100 ML IV SCH (20:00)
[2018-05-11] MEDS: SENNOSIDES/DOCUSATE SODIUM TAB PO SCH (20:27)
[2018-05-11] MEDS: MUPIROCIN 2% 22 GM OINT NS SCH (20:35)
[2018-05-11] MEDS: ceFAZolin 2 GM/DEXTROSE 100 ML IV SCH (21:35)
[2018-05-12] MEDS: fentaNYL 100 MCG/2 ML INJ IVP PRN ×4 (00:46→08:04)
[2018-05-12] MEDS: HYDROCODONE/APAP 5/325 TAB PO PRN ×2 (03:47→05:02)
[2018-05-12 04:44] LABS: PLATELET COUNT 210 10^3/uL (150-400)
--- NOTE | 2018-05-12 04:45 | GOP ---
DATE OF OPERATION: 05/12/2018 SURGEON: Randall Hurst DO PROFESSIONAL HOUSING CONSULTANT: Ananth Naidu PA-C. ANESTHESIOLOGIST: Malachi Holloway MD. PREOPERATIVE DIAGNOSIS: Non-Q-wave infarction with post infarction angina and severe 3-vessel diseas e. POSTOPERATIVE DIAGNOSIS: Non-Q-wave infarction with post infarction angina and severe 3-vessel disea se. PROCEDURE PERFORMED: 1. Urgent coronary bypass grafting x4 with left internal mammary artery to the left anterior descend ing, right internal mammary artery to the main right, saphenous vein graft to the lateral circumflex and saphenous vein graft to the posterior descending artery. 2. Ligate left atrial appendage. 3. Endoscopic vein harvest. FINDINGS: Patient was noted to have persistent chest pain on admission with elevated troponins. Jessica gnostic cath revealed severe 3-vessel disease with preserved LV function. He was consented for surge ry by his . DESCRIPTION OF PROCEDURE: He was taken to the operating room intubated, and monitoring lines were pl aced. He was prepped and draped in the sterile classical manner. Sternotomy was performed. Both ma mmaries were harvested. They were excellent 2.8 to 3 mm vessels with brisk flow. He was heparinized , cannulated and bypass was begun. The vein had been harvested endoscopically from the left leg by PEPE Moody, who first assisted throughout the procedure. All distals and proximals were performe d with a cross-clamp on. The cross-clamp was removed with suction on the ascending aortic vent. Spo ntaneous cardiac activity was noted to resume. Left atrial appendage was doubly ligated with Endoloo ps. He was weaned from bypass and the heparin was reversed with protamine. The cannula was removed and oversewn. Two ventricular pacing wires, 2 pleural and 1 mediastinal drain were placed. The thym ic fat and pericardium were closed. Chest was closed in standard fashion. The patient was returned to ICU in stable condition. /[id number]/MODL
[2018-05-12] MEDS: HEPARIN 5,000 UNIT/0.5 ML INJ SC SCH ×3 (05:39→21:48)
[2018-05-12] MEDS: ceFAZolin 2 GM/DEXTROSE 100 ML IV SCH ×3 (05:52→21:48)
--- NOTE | 2018-05-12 07:27 | SOAPPROG ---
SOAP Progress Note Assessment/Plan: POD #1: Urgent CABGx4 (PRADHAN-LAD, CHELSEA-RCA, SVG-PDA, SVG-lat circ), EVH L thigh, LLAA Unstable angina/NSTEMI/severe 3-vessel CAD s/p urgent CABGx4 - BB/ASA/statin for secondary prevention - CTs to bulb suction, AL/FC out - Transfer to PCU later today once off insulin gtt protocol Acute blood loss anemia - Stable without the need for transfusion DM - Will transition insulin gtt to ISS today - Re-introduction of Metformin/Lantus as per hospitalist - A1c pending DVT prophylaxis - SCDs/heparin SQ Subjective: Has some pain. Feels hot. Denies SOB. Objective: Vital Signs Temp Pulse Resp BP Pulse Ox 36.7 C 101 H 30 H 125/85 H 92 05/12/18 07:00 05/12/18 07:00 05/12/18 07:00 05/12/18 07:00 05/12/18 07:00 Laboratory Results 05/12/18 04:00 05/12/18 04:00 05/11/18 05/12/18 05/13/18 05:59 05:59 05:59 Intake Total 756 Output Total 1420 Balance -664 PT 12.6 SEC (12.0-15.0) 05/10/18 15:35 INR 0.92 (0.83-1.16) 05/10/18 15:35 Physical Exam - Physical Exam General Appearance: WD/WN, alert, no apparent distress EENT: No scleral icterus (R), No scleral icterus (L) Neck: normal inspection Respiratory: No respiratory distress Cardiac/Chest: regular rate, rhythm Abdomen: non-tender, soft, No distended Skin: normal color, warm/dry Extremities: No pedal edema Neuro/Psych: no motor/sensory deficits, alert, normal mood/affect, oriented x 3 ICD10 Worksheet Patient Problems: Problems Problem Status Onset Acute blood loss anemia Acute S/P CABG x 4 Acute CAD (coronary artery disease) Acute Chest pain Acute
[2018-05-12] MEDS: OXYCODONE/APAP 5/325 TAB PO PRN ×4 (08:27→20:41)
[2018-05-12] MEDS: ASPIRIN EC 81 MG TAB PO SCH (09:55)
[2018-05-12] MEDS: METOPROLOL TARTRATE 25 MG TAB PO SCH ×2 (09:55→20:40)
[2018-05-12] MEDS: PANTOPRAZOLE SODIUM 40 MG TAB PO SCH (09:55)
[2018-05-12] MEDS: SENNOSIDES/DOCUSATE SODIUM TAB PO SCH ×2 (09:55→20:41)
[2018-05-12] MEDS: MUPIROCIN 2% 22 GM OINT NS SCH ×2 (09:55→20:42)
[2018-05-12] MEDS: traMADol 50 MG TAB PO PRN ×3 (11:17→22:29)
--- NOTE | 2018-05-12 12:08 | CPEKG ---
Test Reason : OPEN Blood Pressure : / mmHG Vent. Rate : 069 BPM Atrial Rate : 069 BPM P-R Int : 177 ms QRS Dur : 120 ms QT Int : 446 ms P-R-T Axes : 079 010 -06 degrees QTc Int : 478 ms Sinus rhythm IVCD, consider atypical RBBB Confirmed by William Campos ([id number]) on 05/12/2018 12:08:21 PM Referred By: Confirmed By:William Campos
[2018-05-12] MEDS: INSULIN LISPRO 100 UNIT/ML SC SCH (17:59)
[2018-05-13] MEDS: traMADol 50 MG TAB PO PRN ×6 (02:00→17:07)
[2018-05-13] MEDS: ceFAZolin 2 GM/DEXTROSE 100 ML IV SCH (05:07)
[2018-05-13] MEDS: HEPARIN 5,000 UNIT/0.5 ML INJ SC SCH ×3 (05:07→21:22)
[2018-05-13 05:34] LABS: PLATELET COUNT 222 10^3/uL (150-400)
--- NOTE | 2018-05-13 06:48 | POSTANESTH ---
Post Anesthetic Evaluation Cardiovascular Status: Normal, Stable Respiratory Status: Normal, Stable, Tx Decrease in SpO2 Level of Consciousness/Mental Status: Can Participate in Eval Pain Control: Adequate, Prn Tx Ordered Nausea/Vomiting Control: Adequate, Prn Tx Ordered Complications Possibly Related to Anesthesia: None Noted
--- NOTE | 2018-05-13 07:53 | SOAPPROG ---
SOAP Progress Note Assessment/Plan: POD #2: Urgent CABGx4 (PRADHAN-LAD, CHELSEA-RCA, SVG-PDA, SVG-lat circ), EVH L thigh, LLAA Unstable angina/NSTEMI/severe 3-vessel CAD s/p urgent CABGx4 - BB/ASA/statin for secondary prevention - 2 CTs to be removed today, PW to be cut Acute blood loss anemia - Stable without the need for transfusions DM, well controlled by A1c of 6.6% - Continue ISS today - Re-introduction of Metformin/Lantus as per hospitalist DVT prophylaxis - SCDs/heparin SQ Subjective: Denies pain/SOB. Tired. Ambulating without difficulty. Objective: Vital Signs Temp Pulse Resp BP Pulse Ox 36.7 C 92 20 122/75 H 94 05/12/18 20:00 05/13/18 04:00 05/13/18 04:00 05/13/18 04:00 05/13/18 04:00 Laboratory Results 05/13/18 05:12 05/13/18 05:12 05/12/18 05/13/18 05/14/18 05:59 05:59 05:59 Intake Total 756 2036.7 Output Total 1420 1230 Balance -664 806.7 PT 12.6 SEC (12.0-15.0) 05/10/18 15:35 INR 0.92 (0.83-1.16) 05/10/18 15:35 Physical Exam - Physical Exam General Appearance: WD/WN, alert, no apparent distress EENT: No scleral icterus (R), No scleral icterus (L) Neck: normal inspection Respiratory: normal breath sounds Cardiac/Chest: regular rate, rhythm Abdomen: non-tender, soft, No distended Skin: normal color, warm/dry Extremities: No pedal edema Neuro/Psych: no motor/sensory deficits, alert, normal mood/affect, oriented x 3 ICD10 Worksheet Patient Problems: Problems Problem Status Onset Acute blood loss anemia Acute CAD (coronary artery disease) Acute Chest pain Acute S/P CABG x 4 Acute
[2018-05-13] MEDS ORDERED: FUROSEMIDE 20 MG/2 ML VIAL IVP ONE (07:58)
[2018-05-13] MEDS ORDERED: metFORMIN HCL 500 MG TAB PO SCH (08:00)
[2018-05-13] MEDS: INSULIN LISPRO 100 UNIT/ML SC SCH ×3 (08:45→18:41)
[2018-05-13] MEDS: ASPIRIN EC 81 MG TAB PO SCH (08:46)
[2018-05-13] MEDS: SENNOSIDES/DOCUSATE SODIUM TAB PO SCH ×2 (08:46→21:23)
[2018-05-13] MEDS: HYDROCODONE/APAP 5/325 TAB PO PRN ×3 (08:46→19:15)
[2018-05-13] MEDS: METOPROLOL TARTRATE 50 MG TAB PO SCH ×2 (08:46→21:22)
[2018-05-13] MEDS: PANTOPRAZOLE SODIUM 40 MG TAB PO SCH (08:46)
[2018-05-13] MEDS: MUPIROCIN 2% 22 GM OINT NS SCH (08:52)
--- NOTE | 2018-05-13 11:27 | ASMTCMCOM ---
CM Note CM Note Notes: PT is recommending home and/or cardiac rehab on an outpatient basis. Patient likely to d/c independently. CM available should d/c needs arise. Date Signed: 05/13/2018 11:26 AM Electronically Signed By:Mag Lara LCSW
--- NOTE | 2018-05-13 13:08 | HOSPPROG ---
Hospitalist Progress Note Assessment/Plan: 57M with unstable angina, now s/w CABG. # DM - good overall control, A1c 6.7% - start glargine 5 bid (home 30 HS) given poor PO intake - follow glucs - cont SSI Subjective: chest hurting, holding pillow; not eating much Objective: Vital Signs Temp Pulse Resp BP Pulse Ox 36.6 C 91 20 126/70 H 92 05/13/18 12:30 05/13/18 12:30 05/13/18 12:30 05/13/18 12:30 05/13/18 12:30 Laboratory Results 05/13/18 05:12 05/13/18 05:12 05/12/18 05/13/18 05/14/18 05:59 05:59 05:59 Intake Total 756 2036.7 500 Output Total 1420 1230 860 Balance -664 806.7 -360 PT 12.6 SEC (12.0-15.0) 05/10/18 15:35 INR 0.92 (0.83-1.16) 05/10/18 15:35 chart reviewed op note reviewed cxr reviewed - Physical Exam Constitutional: uncomfortable Ears, Nose, Mouth, Throat: other (r IJ) Cardiovascular: regular rate and rhythym, no murmur, rub, or gallop, other ( sternotomy, drain) Respiratory: no respiratory distress, clear to auscultation Gastrointestinal: soft, non-tender abdomen, no palpable masses, No guarding, No rebound, No distension ICD10 Worksheet Patient Problems: Problems Problem Status Onset Acute blood loss anemia Acute S/P CABG x 4 Acute CAD (coronary artery disease) Acute Chest pain Acute
[2018-05-13] MEDS: INSULIN GLARGINE 100 UNITS/ML UNIT SC SCH (21:24)
[2018-05-14] MEDS: traMADol 50 MG TAB PO PRN (01:45)
[2018-05-14] MEDS: HEPARIN 5,000 UNIT/0.5 ML INJ SC SCH ×3 (05:40→21:11)
--- NOTE | 2018-05-14 08:27 | SOAPPROG ---
SOAP Progress Note Assessment/Plan: Assessment: POD#3 Urgent CABGx4 (PRADHAN-LAD, CHELSEA-RCA, SVG-PDA, SVG-lat circ), EVH L thigh, prophylactic ligation PA Postinfarction angina/severe 3-vessel CAD - s/p urgent CABGx4 with 2 arterial grafts. Stable early postop course. 2 of 3 CTs and PW out. AF prophylaxis with BB. Secondary prevention with ASA, BB, and statin. ACEI/ARB if sufficient BP. Acute expected blood loss anemia - Stable without the need for transfusions. VTE prophylaxis with SCDs/heparin SQ. DM2, well controlled on metformin/glargine by preop A1c of 6.6% - Postop hyperglycemia managed with insulin gtt. Transition to [facility]/home regimen per hospitalist. Plan: Remaining pleural tube removed Start losartan 25 mg daily Cont inc activity as tolerated Dispo - Anticipate home tomorrow without services next 1-2 days 05/14/18 08:23 Subjective: Improving stamina and appetite. Adequate analgesia on Alfred. Awaiting BM. Lives in [place], planning cardiac rehab at [facility]. Objective: Vital Signs Temp Pulse Resp BP Pulse Ox 36.8 C 105 H 16 142/90 H 90 L 05/14/18 07:38 05/14/18 07:38 05/14/18 07:38 05/14/18 07:38 05/14/18 07:38 Laboratory Results 05/13/18 05:12 05/14/18 05:44 05/13/18 05/14/18 05/15/18 05:59 05:59 05:59 Intake Total 2036.7 975 Output Total 1230 5750 Balance 806.7 -4775 PT 12.6 SEC (12.0-15.0) 05/10/18 15:35 INR 0.92 (0.83-1.16) 05/10/18 15:35 SR/ST, likely reactive to pain. Uptrending SBPs. Min suppl O2 req. CTOP at removal criteria. Vigorous diuresis and now below admit wt. K ok. - Pending Discharge Pending Discharge Within 48 Hours: Yes Pending Discharge Date: 05/16/18 Pending Discharge Time: 11:00 Physical Exam - Physical Exam General Appearance: alert, no apparent distress Respiratory: decreased breath sounds (bases), other (Fran x 1 to bulb suction, serosang drainage; tube removed without incident) Cardiac/Chest: regular rate, rhythm, tachycardia, other (Sternotomy CDI) Abdomen: normal bowel sounds, non-tender, soft (protuberant) Skin: warm/dry Extremities: other (no visible edema) ICD10 Worksheet Patient Problems: Problems Problem Status Onset Acute blood loss anemia Acute CAD (coronary artery disease) Acute Chest pain Acute S/P CABG x 4 Acute
[2018-05-14] MEDS: ASPIRIN EC 81 MG TAB PO SCH (08:33)
[2018-05-14] MEDS: SENNOSIDES/DOCUSATE SODIUM TAB PO SCH ×2 (08:33→21:11)
[2018-05-14] MEDS: METOPROLOL TARTRATE 50 MG TAB PO SCH ×2 (08:33→21:11)
[2018-05-14] MEDS: PANTOPRAZOLE SODIUM 40 MG TAB PO SCH (08:33)
[2018-05-14] MEDS: HYDROCODONE/APAP 5/325 TAB PO PRN ×4 (08:34→21:12)
[2018-05-14] MEDS: INSULIN GLARGINE 100 UNITS/ML UNIT SC SCH ×2 (08:34→22:38)
[2018-05-14] MEDS: INSULIN LISPRO 100 UNIT/ML SC SCH ×3 (08:52→19:52)
[2018-05-14] MEDS ORDERED: INSULIN GLARGINE 100 UNITS/ML UNIT SC ONE (10:07)
--- NOTE | 2018-05-14 10:07 | HOSPPROG ---
Hospitalist Progress Note Assessment/Plan: 57M with unstable angina, now s/w CABG. # DM - good overall control, A1c 6.7% - incr glargine to 10U bid (home 30 HS) - follow glucs - cont SSI Subjective: chest tube removed this am; has more of an appetite Objective: Vital Signs Temp Pulse Resp BP Pulse Ox 36.8 C 105 H 16 142/90 H 90 L 05/14/18 07:38 05/14/18 07:38 05/14/18 07:38 05/14/18 07:38 05/14/18 07:38 Laboratory Results 05/13/18 05:12 05/14/18 05:44 05/13/18 05/14/18 05/15/18 05:59 05:59 05:59 Intake Total 2036.7 975 Output Total 1230 5750 Balance 806.7 -4775 PT 12.6 SEC (12.0-15.0) 05/10/18 15:35 INR 0.92 (0.83-1.16) 05/10/18 15:35 - Physical Exam Constitutional: uncomfortable Ears, Nose, Mouth, Throat: other (R triple lumen) Cardiovascular: regular rate and rhythym, no murmur, rub, or gallop, other ( sternotomy) Respiratory: no respiratory distress, no rales or rhonchi, clear to auscultation Gastrointestinal: soft, non-tender abdomen, no palpable masses, No guarding, No rebound, No distension ICD10 Worksheet Patient Problems: Problems Problem Status Onset Acute blood loss anemia Acute S/P CABG x 4 Acute CAD (coronary artery disease) Acute Chest pain Acute
[2018-05-14] MEDS: LOSARTAN POTASSIUM 25 MG TAB PO SCH (11:07)
[2018-05-15] MEDS: HYDROCODONE/APAP 5/325 TAB PO PRN ×4 (04:09→13:31)
[2018-05-15] MEDS: HEPARIN 5,000 UNIT/0.5 ML INJ SC SCH (06:38)
--- NOTE | 2018-05-15 08:09 | SOAPPROG ---
SOAP Progress Note Assessment/Plan: Assessment: POD#4 Urgent CABGx4 (PRADHAN-LAD, CHELSEA-RCA, SVG-PDA, SVG-lat circ), EVH L thigh, prophylactic ligation PA Postinfarction angina/severe 3-vessel CAD - s/p urgent CABGx4 with 2 arterial grafts. Stable early postop course. CTs and PW out. AF prophylaxis with BB. Secondary prevention with ASA, BB, statin, and ARB. Acute expected blood loss anemia - Stable without the need for transfusions. VTE prophylaxis with SCDs/heparin SQ. DM2, well controlled on metformin/glargine by preop A1c of 6.6% - Postop hyperglycemia managed with insulin gtt. Transition to SSI/home regimen per hospitalist. Plan: Ok for home. Instructions re diet, meds, activity, wound care and f/u to be reviewed in presence of . 05/15/18 08:07 Subjective: Feels well. Significantly more comfortable after chest tube removal. Improved IS. Appetite returning. Ready to go home. Objective: Vital Signs Temp Pulse Resp BP Pulse Ox 37.2 C 84 18 107/74 94 05/14/18 22:30 05/14/18 22:30 05/14/18 22:30 05/14/18 22:30 05/14/18 22:30 Laboratory Results 05/15/18 06:45 05/15/18 06:45 05/14/18 05/15/18 05/16/18 05:59 05:59 05:59 Intake Total 975 650 250 Output Total 5750 1350 Balance -4775 -700 250 PT 12.6 SEC (12.0-15.0) 05/10/18 15:35 INR 0.92 (0.83-1.16) 05/10/18 15:35 HR and BP adequately controlled. Borderline suppl O2. CXR -> small apical rt PTX likely hypoinflation, doubt air leak. Physical Exam - Physical Exam General Appearance: alert, no apparent distress Respiratory: lungs clear (grossly) Cardiac/Chest: regular rate, rhythm, other (Sternotomy and LLE venotomy CDI) Abdomen: non-tender, soft Skin: warm/dry Extremities: other (no visible edema) ICD10 Worksheet Patient Problems: Problems Problem Status Onset Acute blood loss anemia Acute CAD (coronary artery disease) Acute Chest pain Acute S/P CABG x 4 Acute
[2018-05-15] MEDS: INSULIN GLARGINE 100 UNITS/ML UNIT SC SCH (08:56)
[2018-05-15] MEDS: LOSARTAN POTASSIUM 25 MG TAB PO SCH (08:57)
[2018-05-15] MEDS: ROSUVASTATIN CALCIUM 10 MG TAB PO SCH (08:57)
[2018-05-15] MEDS: ASPIRIN EC 81 MG TAB PO SCH (08:57)
[2018-05-15] MEDS: METOPROLOL TARTRATE 50 MG TAB PO SCH (08:57)
[2018-05-15] MEDS: PANTOPRAZOLE SODIUM 40 MG TAB PO SCH (08:57)
[2018-05-15] MEDS: INSULIN LISPRO 100 UNIT/ML SC SCH (08:57)
[2018-05-15] MEDS ORDERED: POTASSIUM CL 20 MEQ TAB PO ONE (09:00)
[2018-05-15] MEDS ORDERED: metFORMIN HCL 500 MG TAB PO SCH (09:30)
--- NOTE | 2018-05-15 09:41 | HOSPPROG ---
Hospitalist Progress Note Assessment/Plan: 57M with unstable angina, now s/w CABG. # DM - good overall control, A1c 6.7% - glargine at home dose today (30U) - restart metformin - we discussed diet and lifestyle moving forward Subjective: eating better today Objective: Vital Signs Temp Pulse Resp BP Pulse Ox 36.3 C 97 15 115/78 93 05/15/18 08:00 05/15/18 08:00 05/15/18 08:00 05/15/18 08:00 05/15/18 08:00 Laboratory Results 05/15/18 06:45 05/15/18 06:45 05/14/18 05/15/18 05/16/18 05:59 05:59 05:59 Intake Total 975 650 250 Output Total 5750 1350 Balance -4775 -700 250 PT 12.6 SEC (12.0-15.0) 05/10/18 15:35 INR 0.92 (0.83-1.16) 05/10/18 15:35 - Physical Exam Constitutional: no apparent distress, appears nourished Eyes: anicteric sclera Ears, Nose, Mouth, Throat: moist mucous membranes Cardiovascular: other (sternotomy), No edema Respiratory: no respiratory distress Gastrointestinal: No distension Genitourinary: No vivar in urethra Skin: warm Musculoskeletal: full muscle strength Neurologic: AAOx3 Psychiatric: not anxious ICD10 Worksheet Patient Problems: Problems Problem Status Onset Acute blood loss anemia Acute S/P CABG x 4 Acute CAD (coronary artery disease) Acute Chest pain Acute
--- NOTE | 2018-05-15 10:17 | PDHOMEO2F ---
Home Oxygen Face to Face Home Orders: I certify that a physician or a nurse practitioner or physician's pediatric dental assistant has had a [id number] encounter with this patient on the date of this order due to the diagnosis listed, which relates to the primary reason the patient requires home oxygen. Alternative treatments have been tried, or considered, and deemed ineffective. It is anticipated that supplemental oxygen will result in improvement with treatment. Home oxygen qualifying diagnosis: CAD SpO2 on room air (%): 88 rest Frequency of home oxygen needed: continuous Home oxygen liters per minute: 1 Home oxygen delivery device: nasal cannula Concentrator: Yes E-tanks for mobility and back up: Yes If ordering portable O2, is the patient mobile in the home?: Yes I certify that, based on these findings, the home oxygen is medically necessary for this patient for the following length of time. Length of time home oxygen needed: 1 month
--- NOTE | 2018-05-15 10:18 | PDDCSUM ---
Discharge Summary Discharge Summary: DATE OF ADMISSION: 05/11/18 DATE OF DISCHARGE: 05/15/18 DISPOSITION: Home, self-care PRINCIPAL ADMISSION DIAGNOSIS: Crescendo angina PRINCIPAL DISCHARGE DIAGNOSES: 1. Stuttering non-ST elevation myocardial infarction 2. Severe multivessel coronary artery disease 3. Carotid atherosclerosis 4. Status post coronary artery bypass grafting x 4, using bilateral internal mammary arteries 5. Acute expected blood loss anemia HISTORY OF PRESENT ILLNESS: 57 yo male with multiple cardiac risk factors and a 2 wk hx of crescendo angina admitted for further cardiac evaluation. PERTINENT PAST MEDICAL HISTORY: Obesity, type 2 diabetes, peripheral neuropathy of feet with chronic pain, hyperlipidemia, sinus congestion, former smoker MEDICATIONS ON ADMISSION: ASA 81 mg daily, Vit B complex daily, metformin 1,000 mg BID, insulin glargine 30u sq HS, Crestor 10 mg daily, ibuprofen 800 mg TID prn foot pain, [place] 5/325 one half tab TID prn breakthrough pain, Afrin nasal spray BID ALLERGIES/SENSITIVITIES: NKDA CONSULTANTS: Cardiology ([facility]), CV surgery ([facility]) PROCEDURES/IMAGIN/18 ([facility]): Transthoracic echocardiogram: Nl BiV size and systolic fx, LVEF 55-60%, nl LV diastolic fx, nl sized atria, sclerotic trileaflet AV with trace AI, mild MR, trivial TR. 05/11 ([facility]): Left heart catheterization with selective coronary angiography and left ventriculogram. Access via rt femoral artery. Findings: Rt dominant circulation, 30% ostial LM stenosis, 70% prox LAD stenosis, 80% mid LAD stenosis , 50% ostial OM1 stenosis, multiple high grade proximal RCA stenoses. LVEDP 12. LVEF 65-70%. 05/11 Carotid US: mild plaquing bilateral carotid bulbs, right worse than left. 05/11 ([facility]): Urgent coronary artery bypass grafting x 4 (PRADHAN-LAD, CHELSEA-RCA, SVG-PDA, SV-OM1). Takedown bilateral internal mammary arteries. Endoscopic vein harvest left thigh. Prophylactic suture ligation of the left atrial appendage. ABBREVIATED HOSPITAL COURSE BY ACTIVE PROBLEM LIST: 1. Unstable angina - Assoc with mild troponin excursion and severe 2 vessel CAD. No LV dysfx. Fully revascularized with 4 grafts, including bilateral IMAs. Stable early postop course. No dysrhythmias. Adequate autodiuresis. AF prophylaxis with BB. Secondary prevention with ASA, BB, statin, and ARB. 2. Acute expected blood loss anemia - Stable. No transfusions needed. H/H > 10/ 30 maintained. 3. DM2 - Well controlled by preop A1c of 6.6%. Transitioned back to home regimen by hospitalist. DISCHARGE CLINICAL INFORMATION: Sternum grossly stable. Sternotomy and LLE venotomy CDI, sutured, +Dermabond. HR 80-90s. SBP 110s. SpO2 88% RA rest & 84% RA activity, correcting to > 89% with 1 lpm O2 rest & 2 lpm O2 activity. Wt 1.8 kg below admission at 91.2 kilos. Hgb 11, HCT 32.2, Plt 264, Na 137, K 3.7, Cr 0.5 DISCHARGE MEDICATIONS: As on admission with the following adjustments: 1. Hold ibuprofen 2. Increase [place] to 1 tab q 6hrs prn incisional discomfort NEW prescriptions: 1. Losartan 25 mg daily 2. Metoprolol tartrate 50 mg BID 3. Oxygen continuously, 1 Lpm rest and 2 Lpm activity, or as directed by SpO2 FOLLOW UP APPOINTMENTS: 1. CV surgery: with Dr Hurst at [facility] on 05/24 at 10:00 am. 2. Cardiology: with Casey Mckay NP at [facility] or Dr Bowman at [facility] within 4-6 weeks. Appointment to be established during surgical visit. FOLLOW UP TESTING: CXR prior to surgical appointment.
[2018-05-15] MEDS: SENNOSIDES/DOCUSATE SODIUM TAB PO SCH (10:37)
--- NOTE | 2018-05-15 10:43 | ASDISCHSUM ---
Discharge Information Plan Status:Home with No Needs Medically Cleared to Leave:05/15/2018 Discharge Date:05/15/2018 CM D/C Disposition:Home, Routine, Self-Care ADT D/C Disposition:Home, Routine, Self-Care Projected Discharge Date:05/15/2018 Transportation at D/C:Family Discharge Delay Reason: Follow-Up Date:05/15/2018 Discharge Slot: Final Diagnosis: Placement Information Patient Contact Information Contact Name:GABRIELLA Relationship: Address:[address] [place] [address] Work Phone: City:[facility] Phone: State/Zip Code:[place] [address] Email: Financial Information Financial Class:BCOP Primary Plan Desc: OUT OF STATE [facility] Primary Plan Number:[id number] Secondary Plan Desc: Secondary Plan Number: Assessment Information LACE LACE Length of stay for Answers: 3 days current admission Acuity / Level of Answers: Yes Care: Did the patient have an inpatient admission? Comorbidities - select Answers: Diabetes (uncontrolled or all that apply controlled) Other Notes: HLD # of Emergency department Answers: 1-2 visits in the last 6 months Score: 9 Date Signed: 05/15/2018 10:42 AM Electronically Signed By:Nova eMade RN [facility] Initial CM Assessment Living Arrangements What is your living Answers: With Spouse arrangement? Who do you live with? Type Of Residence What kind of residence do Answers: House you live in? Discharge Plan Comments Coordination Status Comments Notes: Pt is a 57 y/o man admitted for chest pain, dyspnea with exertion. 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 Needs are TBD at this time. CM to follow. Plan: TBD Date Signed: 05/11/2018 02:49 PM Electronically Signed By:VINAY Barth [facility] CM Progress Note CM Note CM Note Notes: PT is recommending home and/or cardiac rehab on an outpatient basis. Patient likely to d/c independently. CM available should d/c needs arise. Date Signed: 05/13/2018 11:26 AM Electronically Signed By:Mag Lara LCSW Case Management Discharge Plan Note Case Management Discharge Discharge Order Complete? Answers: Yes Patient to Obtain Answers: via Family Medications Transportation Arranged Answers: Family/Friends Discharge Comments Notes: 05/15/2018 Case Management Note Pt to discharge independent with follow up as directed. No further case management needs identified. Date Signed: 05/15/2018 10:42 AM Electronically Signed By:Nova Meade RN Intervention Information
[2018-05-15 12:48] VITALS: BP 123/82
[2018-05-16] MEDS ORDERED: VITAMIN B COMPLEX 1 EA CAP/TAB PO SCH (09:00)
== END 2018-05-15 13:57 | disposition home or self-care (01) | DRG 233 ==
LOC: F2W 17:55 → F2N 05-11 14:20 → OBSVTOIN 05-11 17:42 → F2W 05-13 12:21
PROVIDERS: ADMIT Thoracic Surgery (Cardiothoracic Vascular Surgery); ATTEND Thoracic Surgery (Cardiothoracic Vascular Surgery)
PROC: B2151ZZ Fluoroscopy of Left Heart using Low Osmolar Contrast (ICD-10-PCS; 2018-05-11 12:15)
PROC: 4A023N7 Measurement of Cardiac Sampling and Pressure, Left Heart, Percutaneous Approach (ICD-10-PCS; 2018-05-11 12:15)
PROC: B2111ZZ Fluoroscopy of Multiple Coronary Arteries using Low Osmolar Contrast (ICD-10-PCS; 2018-05-11 12:15)
PROC: 06BQ4ZZ Excision of Left Saphenous Vein, Percutaneous Endoscopic Approach (ICD-10-PCS; principal; 2018-05-12)
PROC: 5A1223Z Performance of Cardiac Pacing, Continuous (ICD-10-PCS; principal; 2018-05-12)
PROC: 02L70CK Occlusion of Left Atrial Appendage with Extraluminal Device, Open Approach (ICD-10-PCS; principal; 2018-05-12)
PROC: 021209W Bypass Coronary Artery, Three Arteries from Aorta with Autologous Venous Tissue, Open Approach (ICD-10-PCS; principal; 2018-05-12)
PROC: 02100Z9 Bypass Coronary Artery, One Artery from Left Internal Mammary, Open Approach (ICD-10-PCS; principal; 2018-05-12)
DX: I25.110 Atherosclerotic heart disease of native coronary artery with unstable angina pectoris (principal); I21.3 ST elevation (STEMI) myocardial infarction of unspecified site; D62 Acute posthemorrhagic anemia; I65.29 Occlusion and stenosis of unspecified carotid artery; E66.9 Obesity, unspecified; E11.9 Type 2 diabetes mellitus without complications; G62.9 Polyneuropathy, unspecified; G89.29 Other chronic pain; E78.5 Hyperlipidemia, unspecified; Z87.891 Personal history of nicotine dependence; Z79.84 Long term (current) use of oral hypoglycemic drugs
CPT/HCPCS: 82435-PO; 82565-PO; 82947-PO; 83605-PO; 84132-PO; 84295-PO; 84484-PO; 84520-PO; 85014-PO; 97116-GP; 97161-GP; 97165-GO; 97535-GO; C1760; G0378; G8978-GP-CK; G8979-GP-CJ; J0153; J0282; J0690; J1100; J1265; J1644; J1815; J1940; J2001; J2150; J2250; J2260; J2270; J2370; J2405; J2440; J2704; J2720; J2930; J3010; J3475; J3480; J7060; P9041; Q9967

== ENCOUNTER → 2018-05-24 | Outpatient (CLI) | payer BC | LOC: FIMAGING 10:00 | PROVIDERS: ATTEND Thoracic Surgery (Cardiothoracic Vascular Surgery) | DX: Z09 Encounter for follow-up examination after completed treatment for conditions other than malignant neoplasm (principal); Z95.1 Presence of aortocoronary bypass graft ==

== ENCOUNTER 2018-06-03 11:29 | Emergency (ER) | payer BC ==
--- NOTE | 2018-06-03 12:09 | CPEKG ---
Test Reason : OPEN Blood Pressure : / mmHG Vent. Rate : 071 BPM Atrial Rate : 071 BPM P-R Int : 144 ms QRS Dur : 092 ms QT Int : 396 ms P-R-T Axes : 066 010 077 degrees QTc Int : 431 ms Sinus rhythm Probable left atrial enlargement Confirmed by Ananth Mcintyre ([id number]) on 06/03/2018 12:09:15 PM Referred By: Confirmed By:Ananth Mcintyre
[2018-06-03 12:10] LABS: PLATELET COUNT 470 10^3/uL (150-400)
--- NOTE | 2018-06-03 12:14 | EDPHY ---
H & P Stated Complaint: cabg 3 wks ago, at card rehab, became lightheaded/dizzy/ nauseous/hypotensiv Time Seen by Provider: 06/03/18 11:47 HPI/ROS: CHIEF COMPLAINT: Presyncope HISTORY OF PRESENT ILLNESS: The patient has a history of diabetes and coronary artery disease. The patient is approximately 3 weeks status post CABG. Today he was at cardiac rehab. He exercised without any complications. Afterwards he was watching and educational video when he developed lightheadedness and transient low blood pressure. He had no chest pain or shortness of breath. The patient was brought to the emergency department for further evaluation. The patient denies any acute complaints and states that he feels back at baseline. He specifically reports no history of fever, cough, congestion, asymmetric calf pain or swelling. He has no complaints of melena. He does have a history of diabetes and does have mild chronic polydipsia secondary to this condition. REVIEW OF SYSTEMS: A comprehensive 10 point review of systems is otherwise negative aside from elements mentioned in the history of present illness. Source: Patient Exam Limitations: No limitations - Medical/Surgical History Hx Asthma: No Hx Chronic Respiratory Disease: No Hx Diabetes: Yes Hx Cardiac Disease: Yes Hx Renal Disease: No Hx Cirrhosis: No Hx Alcoholism: No Hx HIV/AIDS: No Hx Splenectomy or Spleen Trauma: No Other PMH: inguinal hernia repair, PNA, tonsilectomy, hyperlipidemia, DM2, hypertension, cabg 05.16.18, sinus surg - Social History Smoking Status: Former smoker - Physical Exam Exam: General Appearance: Alert, no distress Eyes: Pupils equal and round no pallor or injection ENT, Mouth: Mucous membranes moist Respiratory: There are no retractions, lungs are clear to auscultation, sternotomy incision is clean dry and intact Cardiovascular: Regular rate and rhythm Gastrointestinal: Abdomen is soft and nontender, no masses, bowel sounds normal Neurological: A&O, normal motor function, normal sensory exam, normal cranial nerves Skin: Warm and dry, no rashes Musculoskeletal: Neck is supple nontender Extremities: symmetrical, full range of motion Psychiatric: Patient is oriented X 3, there is no agitation Constitutional: Initial Vital Signs Heart Rate 68 06/03/18 11:35 Respiratory Rate 18 06/03/18 11:35 Blood Pressure 98/68 L 06/03/18 11:35 O2 Sat (%) 99 06/03/18 11:35 O2 Delivery Mode Room Air Allergies/Adverse Reactions: No Known Allergies Allergy (Verified 06/03/18 11:39) Home Medications: Medication Instructions Recorded Aspirin EC [Aspirin EC 81 mg (*)] 81 mg PO DAILY 05/10/18 Insulin Glargine [Lantus 100 30 unit SC HS 05/10/18 UNITS/ML (*)] Metformin HCl [Metformin 1000 mg] 1,000 mg PO BIDMEAL 05/10/18 Oxymetazoline HCl [Afrin Nasal 1 spray EACHNARE BID 05/10/18 [place]] Rosuvastatin Calcium [Crestor] 10 mg PO DAILY 05/10/18 Vitamin B Complex [Vitamin B 1 each PO DAILY 05/10/18 Complex (OTC)] Acetaminophen [Tylenol 325mg (*)] 325 - 650 mg PO Q4HRS PRN tab 05/15/18 Hydrocodone/APAP 5/325 [[place] 0.5 - 1 each PO TID PRN #30 tab 05/15/18 5/325 (*)] Losartan Potassium [Cozaar 25 mg 25 mg PO DAILY #30 tab 05/15/18 (*)] Metoprolol Tartrate [Lopressor 50 50 mg PO BID #60 tab 05/15/18 mg (*)] Medical Decision Making - Diagnostics EKG Interpretation: EKG: Complete interpretation has been separately recorded in the [employer] archive. Summary impression: Sinus rhythm, rate 71 Imaging Results: Imaging Impressions Chest X-Ray 06/03/18 12:20 Impression: 1. No acute process. 2. Resolved pleural effusions 3. Near complete resolution left hilar atelectasis. ED Course/Re-evaluation: The patient presents the emergency department after a likely vasovagal episode. His EKG demonstrates no evidence of a significant arrhythmia. He is not hypotensive upon arrival. - Data Points Laboratory Results: Laboratory Results 06/03/18 11:50 06/03/18 11:50 06/03/18 06/03/18 06/03/18 11:54 11:50 11:50 WBC 11.12 10^3/uL H 10^3/uL (3.80-9.50) RBC 4.29 10^6/uL L 10^6/uL (4.40-6.38) Hgb 12.5 g/dL L g/dL (13.7-17.5) Hct 37.7 % L % (40.0-51.0) MCV 87.9 fL fL (81.5-99.8) MCH 29.1 pg pg (27.9-34.1) MCHC 33.2 g/dL g/dL (32.4-36.7) RDW 14.3 % % (11.5-15.2) Plt Count 470 10^3/uL H 10^3/uL (150-400) MPV 9.0 fL fL (8.7-11.7) Neut % (Auto) 50.3 % % (39.3-74.2) Lymph % (Auto) 34.3 % % (15.0-45.0) [place] % (Auto) 9.4 % % (4.5-13.0) Eos % (Auto) 4.7 % % (0.6-7.6) Baso % (Auto) 0.5 % % (0.3-1.7) Nucleat RBC Rel Count 0.0 % % (0.0-0.2) Absolute Neuts (auto) 5.60 10^3/uL 10^3/uL (1.70-6.50) Absolute Lymphs (auto) 3.81 10^3/uL H 10^3/uL (1.00-3.00) Absolute Monos (auto) 1.04 10^3/uL H 10^3/uL (0.30-0.80) Absolute Eos (auto) 0.52 10^3/uL H 10^3/uL (0.03-0.40) Absolute Basos (auto) 0.06 10^3/uL 10^3/uL (0.02-0.10) Absolute Nucleated RBC 0.00 10^3/uL 10^3/uL (0-0.01) Immature Gran % 0.8 % % (0.0-1.1) Immature Gran # 0.09 10^3/uL 10^3/uL (0.00-0.10) Sodium 139 mEq/L mEq/L (135-145) Potassium 4.7 mEq/L mEq/L (3.3-5.0) Chloride 103 mEq/L mEq/L (97-110) Carbon Dioxide 24 mEq/l mEq/l (22-31) Anion Gap 12 mEq/L mEq/L (6-14) BUN 17 mg/dL mg/dL (7-23) Creatinine 0.6 mg/dL L mg/dL (0.7-1.3) Estimated GFR > 60 Glucose 142 mg/dL H mg/dL (70-100) Calcium 9.6 mg/dL mg/dL (8.5-10.4) POC Troponin I 0.02 ng/mL ng/mL (0.00-0.08) Medications Given: Discontinued Medications Sodium Chloride (Ns) 500 mls @ 1,000 mls/hr IV EDNOW ONE PRN Reason: Protocol Stop: 06/03/18 12:47 Last Admin: 06/03/18 12:21 Dose: 500 mls Point of Care Test Results: Chemistry 06/03/18 11:54 POC Troponin I 0.02 ng/mL ng/mL (0.00-0.08) Departure - Departure Disposition: Home, Routine, Self-Care Clinical Impression: Vasovagal near-syncope Instructions: Syncope (ED) Additional Instructions: 1. Please try and increase your fluid intake as mild dehydration may have contributed to your symptoms today. 2. Return to the ED for any recurrent symptoms, chest pain, difficulty breathing or other concerns. 3. Follow up with your regular physician as scheduled. Referrals: PARUL GHOSH [Other] - As per Instructions
[2018-06-03] MEDS: NS 500 ML IV ONE (12:21)
[2018-06-03 14:44] VITALS: BP 107/65
== END 2018-06-03 14:47 | disposition home or self-care (01) ==
DX: R55 Syncope and collapse (principal)
CPT/HCPCS: 84484-PO